=== PATIENT | male | born 1955 | race Caucasian/White ===

== ENCOUNTER → 2016-05-05 | Day surgery (SDC) | payer BC ==
[~2016-05-05] MED LIST: ASPIRIN81 M2 PO; B COMPLEX1 EACH PO; FISH OIL 1,0001 EACH PO; KRILL OIL 1,001 EAC1 PO; MULTI VITAMIN1 EACH PO; OMEPRAZOLE40 M1 PO; PRINIVIL40 MG PO; VITAMIN C500 M6 PO; VITAMIN D1000 UNI1 PO; ZESTRIL30 MG PO
--- NOTE | ~2016-05-05 | OR ---
Unit #: [id number] #: [id number] Patient: YOLANDA ALLRED [id number] [address] [address] [id number] O MR#: [id number] NAME: YOLANDA ALLRED. ROOM: Date of Procedure: 05/05/2016 Admission Date: 05/05/2016 Surgeon: Arsalan Asher M.D. : 1955 Attending Physician: Arsalan Asher M.D. Primary Care Physician: Kimmy Humphreys M.D. OPERATIVE REPORT PRIMARY CARE PHYSICIAN Kimmy Humphreys M.D. PREOPERATIVE DIAGNOSES The patient has presented with history of gastroesophageal reflux and retrosternal ascending heartburn. In addition, the patient he needs a screening colonoscopy. PROCEDURES PERFORMED 1. Upper gastrointestinal endoscopy and biopsy. 2. Upper gastrointestinal endoscopy and dilation as well as colonoscopy up to cecum. POSTOPERATIVE DIAGNOSES For upper endoscopy: 1. The patient had distal grade 2 erosive esophagitis. 2. There was early esophageal stricture. The latter was dilated using an 18 to 20 mm TTS balloon. 3. Mild to moderate prepyloric antral erosive gastritis. The biopsies obtained from the antrum for CLOtest. 4. Rest of the examination up to third part of duodenum was normal. For colonoscopy: 1. Completely normal examination up to cecum. The quality of prep was good. No polyps, diverticula, or hemorrhoids were seen. RECOMMENDATIONS 1. Pantoprazole or omeprazole 40 mg p.o. daily. 2. The patient will be followed up in the office in 3 months' time. 3. Repeat colonoscopy in 10 years. SEDATION USED MAC. DESCRIPTION OF PROCEDURE Following detailed explanation of the potential risks and complications of an upper endoscopy and a colonoscopy, namely perforation, bleeding, and complications related to sedation, the patient was brought to GI lab and laid in the left lateral decubitus position. Lubricated tip of the Olympus video upper endoscope was passed through the bite block into the proximal esophagus under direct vision. The entire esophageal mucosa was examined and the patient was noted to have grade 2 distal erosive esophagitis. In addition, an early esophageal stricture was also noted. Unit #: [id number] #: [id number] Patient: YOLANDA ALLRED The scope was then advanced into the gastric cavity and the latter was insufflated. Mucosa of the fundus, body, and antrum examined and the patient was noted to have moderate prepyloric antral erosive gastritis with erosions and erythema in the antrum. Pylorus was intubated with visualization of the normal duodenal bulb and second and third part of the duodenum. Upon withdrawal and retroflexion, incisura, cardia, and greater curve examined and a biopsy obtained from the antrum for CLOtest. The scope was then withdrawn in the distal esophagus. An 18 to 20 mm TTS balloon was passed through the accessory channel of the scope and dilation was achieved at 20 mm. It was felt at the esophagus. No bleeding was noted, therefore, the scope was withdrawn. A 60-Vietnamese Quintanilla dilator was introduced and dilation was accomplished. Relook endoscopy showed minimal bleeding at the site of the stricture. The entire esophageal mucosa was examined all the way up to pharynx. No additional findings noted. The examination table was then turned by 180 degrees and the patient positioned for a colonoscopy. A digital rectal examination was performed, which was normal. Lubricated tip of the Olympus video colonoscope was inserted through the anus and advanced under direct vision. The scope was advanced and passed up to sigmoid into descending colon. No diverticula were noticed in this area. The scope tip was then navigated all the way up to cecum with visualization of the ileocecal valve and the appendiceal orifice. Preparation was excellent with good visualization and photodocumentation was obtained. Successive segments of the colonic mucosa were examined upon withdrawal and appeared unremarkable. There being no polyps, mass lesions, AVMs, or diverticula. The patient did not have any hemorrhoids at anal verge. The scope was then withdrawn. The patient returned to recovery area. The patient tolerated the procedure without any postprocedure complications. Dictated by... Cole Daly TD: 05/05/2016 22:41 JOB #: [id number] OPERATIVE REPORT X Arsalan Asher MD X PROCEDURE OPERATIVE NOTE
== END | disposition home or self-care (01) ==
LOC: COPS 07:26
DX: Z12.11 Encounter for screening for malignant neoplasm of colon (principal); K20.8 Other esophagitis; K22.2 Esophageal obstruction; K29.00 Acute gastritis without bleeding; K21.9 Gastro-esophageal reflux disease without esophagitis; I10 Essential (primary) hypertension; F17.210 Nicotine dependence, cigarettes, uncomplicated; Z79.82 Long term (current) use of aspirin; Z79.899 Other long term (current) drug therapy; Z98.890 Other specified postprocedural states
CPT/HCPCS: 87077

== ENCOUNTER → 2016-08-20 | Outpatient (CLI) | payer BC ==
--- NOTE | ~2016-08-20 | CT134 ---
[facility] A Service of [facility] & [facility] RADIOLOGY TEXT RESULTS PATIENT: YOLANDA ALLRED LOCATION: CIVR : 53 UNIT #: [id number] AGE: [address]: Arsalan Asher MD SEX: M ORDER DR: [id number] [facility] [address] [facility]. [place], [place] [address] [id number] O MR#: [id number] Acc #: [id number] NAME: YOLANDA ALLRED : 1955 SEX: M STUDY DATE/TIME: 08/20/2016 8:11 UNIT: CIVR ROOM: STUDY DESCRIPTION: CT Guide Attending Physician: Arsalan Asher M.D. Ordering Physician: Arsalan Asher M.D. Primary Care Physician: Kimmy Humphreys M.D. MEDICAL IMAGING REPORT This report is preliminary unless electronic signature is present EXAM CT-guided liver biopsy INDICATION Abnormal elevated liver function tests. The risks, benefits, and alternatives to the procedure were explained to the patient and signed informed consent was obtained. Patient was placed supine on the CT scanner gantry, preliminary CT scan was performed through the region of interest. The patient was incidentally noted to have what may be a right renal cyst although in some areas it does measure higher in density than a simple cyst. They are clearly identified on the prior ultrasound from June 05, 2015 although this may be simply related to differences in technique. An appropriate site overlying the right hepatic lobe was selected. The overlying skin was marked. The patient was prepped and draped in the usual sterile fashion. A time-out was performed as per protocol. The skin and subcutaneous tissues were anesthetized with buffered lidocaine. A 17 gauge coaxial needle was advanced into the right hepatic lobe. A repeat scan confirmed the appropriate position of the needle. At this point core samples were obtained using an 18 gauge BioPince biopsy gun. The needle was then removed and manual pressure was applied until hemostasis was obtained. The patient tolerated the procedure well and there were no immediate complications. Moderate sedation was applied to the patient, I supervised the RN and monitored the patient's vital signs for a total of 7 minutes of etfi-td-lmte time. IMPRESSION 1. Technically successful CT-guided liver biopsy as noted above. CT was used during the procedure and permanent images were saved. [facility] A Service of [facility] RADIOLOGY TEXT RESULTS PATIENT: YOLANDA ALLRED LOCATION: [facility] : 53 UNIT #: [id number] AGE: [address]: Arsalan Asher MD SEX: M ORDER DR: 2. The patient does have an exophytic structure arising from the superior pole of the kidney. In some areas it appears to be fluid in attenuation. I suspect it is most likely a cyst but in some areas of measures higher density than simple cyst and I do not clearly identified on the prior ultrasound from May 2015. 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 Dictated by... Marylou Gould M.D. THIS IS AN ELECTRONICALLY VERIFIED REPORT Marylou Gould M.D. at 08/23/2016 3:53 PM DANA/inés TD: 08/23/2016 08:29 JOB #: [id number] MEDICAL IMAGING REPORT Page 1 of 1 COPY
[2016-08-20 07:03] LABS: HEMATOCRIT 49.6 % (38.0-50.0); MEAN CELL VOLUME 92.1 FL (83-96); MEAN CORPUSCULAR HEMOGLOBIN 31.5 PG (28-34); MEAN CORPUSCULAR HGB CONC 34.3 g/dL (30-36); MEAN PLATELET VOLUME 9.6 FL (6.5-11.5); RED BLOOD COUNT 5.39 X10e (3.90-5.60); RED CELL DISTRIBUTION WIDTH 13.7 % (11.0-15.5); WHITE BLOOD COUNT 7.8 X10e3 (4.0-10.5)
[2016-08-20 07:10] LABS: PARTIAL THROMBOPLASTIN TIME 27.4 SECONDS (23.5-31.3)
== END | disposition home or self-care (01) ==
LOC: CIVR 06:03
PROVIDERS: Internal Medicine Gastroenterology
DX: K75.81 Nonalcoholic steatohepatitis (NASH) (principal); K74.0 Hepatic fibrosis; R94.4 Abnormal results of kidney function studies
CPT/HCPCS: 36415; 77012; 85027; 85610; 85730; 88307; 88313; J2250; J3010